=== PATIENT | female | born 1935 | race Caucasian/White ===

== ENCOUNTER → 2018-09-27 | Outpatient (CLI) | payer OTHER ==
[~2018-09-27] MED LIST: ALLOPURINOL300 MG PO; ATIVAN0.5 M1 PO; AVALIDE 150/12.1 TAB PO; NEURONTIN800 MG PO; OMEPRAZOLE20 MG PO; VITAMIN D5000 UNIT PO
== END | disposition home or self-care (01) ==
LOC: TOM 07:15
DX: K57.30 Diverticulosis of large intestine without perforation or abscess without bleeding (principal); K56.600 Partial intestinal obstruction, unspecified as to cause; Z86.010 Personal history of colon polyps